=== PATIENT | male | born 1935 | race Caucasian/White ===

== ENCOUNTER 2017-04-16 18:53 | Inpatient (IN) | payer MEDICARE ==
[~2017-04-16] VITALS: Ht 165.1 cm; Wt 75.9 kg
[~2017-04-16 18:53] MED LIST: AEC81 PO; ALLO300T2 PO; AMLO5TAB2 PO; ASPI-1197 PO; CLOP75TA32 PO; ENAL20TA PO; FINA5TAB41 PO; TERA5CAP4 PO
[2017-04-16] MEDS ORDERED: IPRATROPIUM/ALBUTEROL SULFATE 3 ML SOLUTION IH ONE (19:24)
[2017-04-16] MEDS ORDERED: METHYLPREDNISOLONE SOD SUCC 125MG/2ML VIAL ONE (19:46)
[2017-04-16] MEDS ORDERED: SODIUM CHLORIDE 0.9% 1000ML 1,000 ML IV ONE (19:46)
[2017-04-16 20:00] LABS: BASOPHILS % (AUTO) 0.8 % (0.0-5.0); EOSINOPHILS % (AUTO) 5.3 % (0.0-8.0); HEMATOCRIT 38.5 % (42-54); LYMPHOCYTES % (AUTO) 21.8 % (21.0-51.0); MEAN CORPUSCULAR HEMOGLOBIN 32.2 pg (27.0-33.0); MEAN CORPUSCULAR HGB CONC 34.2 g/dL (32.0-36.0); MONOCYTES % (AUTO) 8.9 % (3.0-13.0); NEUTROPHILS % (AUTO) 63.2 % (40.0-77.0); PLATELET COUNT (AUTO) 181 K/uL (130-400); RED CELL DISTRIBUTION WIDTH 13.2 % (11.0-15.5); WHITE BLOOD COUNT (AUTO) 8.4 K/uL (4.8-10.8)
[2017-04-16 20:18] LABS: POTASSIUM 3.5 mmol/L (3.5-5.1)
[2017-04-16 20:23] LABS: ALBUMIN 3.7 g/dL (3.5-5.0); BILIRUBIN,TOTAL 0.4 mg/dL (0.2-1.0); TOTAL PROTEIN, SERUM 7.2 g/dL (6.0-8.3)
[2017-04-16 20:30] LABS: B-TYPE NATRIURETIC PEPTIDE 56 pg/mL (0-100)
[2017-04-16] MEDS ORDERED: BENZONATATE 100 MG CAPSULE PO ONE (20:32)
[2017-04-16] MEDS ORDERED: AZITHROMYCIN 250 MG TABLET PO ONE (20:32)
[2017-04-16 22:12] LABS: APPEARANCE,URINE Clear (CLEAR); BILIRUBIN,URINE Negative (NEGATIVE); COLOR,URINE Yellow (YELLOW); GLUCOSE, URINE (UA) Negative (NEGATIVE); KETONES,URINE Negative (NEGATIVE); LEUKOCYTE ESTERASE ,URINE Trace (NEGATIVE); NITRATE,URINE Negative (NEGATIVE); OCCULT BLOOD,URINE Negative (NEGATIVE); PROTEIN,URINE Negative (NEGATIVE); UROBILINOGEN,URINE 0.2 mg/dL (0.2-1.0)
[2017-04-16] MEDS ORDERED: ALBUTEROL SULFATE 0.083% 2.5 MG/3 ML INH IH ONE (22:22)
[2017-04-16 22:23] LABS: RBC,URINE 0-1 /HPF (0-1)
[2017-04-16 22:24] LABS: BACTERIA,URINE Rare /HPF (None Seen); SQUAMOUS EPITHELIAL CELL,UR Rare /LPF (0-2)
[2017-04-17] MEDS ORDERED: AZITHROMYCIN 500MG+NS 250ML 250 ML IV SCH (00:30)
[2017-04-17] MEDS ORDERED: ONDANSETRON HCL 4 MG/2 ML VIAL IV PRN (00:30)
[2017-04-17] MEDS ORDERED: HYDRALAZINE HCL 20 MG/ML VIAL IV PRN (00:30)
[2017-04-17] MEDS ORDERED: IPRATROPIUM/ALBUTEROL SULFATE 3 ML SOLUTION IH ONE ×3 (01:45→13:41)
[2017-04-17] MEDS: IPRATROPIUM/ALBUTEROL SULFATE 3 ML SOLUTION IH SCH ×6 (02:00→21:43)
[2017-04-17 06:46] LABS: HEMATOCRIT 40.2 % (42-54); MEAN CORPUSCULAR HEMOGLOBIN 32.4 pg (27.0-33.0); MEAN CORPUSCULAR HGB CONC 34.2 g/dL (32.0-36.0); MEAN CORPUSCULAR VOLUME 94.9 fL (79-99); PLATELET COUNT (AUTO) 200 K/uL (130-400); RED BLOOD CELL COUNT(AUTO) 4.23 MIL/uL (4.50-6.20); RED CELL DISTRIBUTION WIDTH 13.6 % (11.0-15.5); WHITE BLOOD COUNT (AUTO) 8.4 K/uL (4.8-10.8)
[2017-04-17 06:52] LABS: CREATININE 1.2 mg/dL (0.5-1.5); POTASSIUM 3.6 mmol/L (3.5-5.1)
[2017-04-17 06:57] LABS: ALBUMIN 3.5 g/dL (3.5-5.0); BILIRUBIN,TOTAL 0.6 mg/dL (0.2-1.0)
[2017-04-17 07:14] LABS: EOSINOPHILS % (MANUAL) 1 % (1-6); LYMPHOCYTES % (MANUAL) 2 % (22-44); MAN.DIFF COMMENT-IMPRESSION MANUAL DIFFERENTIAL; PLATELET MORPHOLOGY COMMENT ADEQUATE; SEGMENTED NEUTROPHILS % 97 % (40-70)
[2017-04-17] MEDS: ENOXAPARIN SODIUM 30 MG/0.3 ML SQ SCH (09:00)
[2017-04-17] MEDS: METHYLPREDNISOLONE SOD SUCC 125MG/2ML VIAL IV SCH ×2 (09:00→21:00)
[2017-04-17] MEDS ORDERED: ENOXAPARIN SODIUM 30 MG/0.3 ML SQ ONE (09:11)
[2017-04-17] MEDS ORDERED: METHYLPREDNISOLONE SOD SUCC 40MG/ML 1ML ONE ×2 (09:11→21:00)
[2017-04-17] MEDS ORDERED: AZITHROMYCIN 500MG+NS 250ML 250 ML IV ONE (12:24)
[2017-04-17 21:20] VITALS: BP 149/69
[2017-04-17] MEDS: BENZONATATE 100 MG CAPSULE PO SCH (22:37)
[2017-04-17 23:20] VITALS: BP 120/63
[2017-04-18] MEDS: IPRATROPIUM/ALBUTEROL SULFATE 3 ML SOLUTION IH SCH ×6 (02:36→22:35)
[2017-04-18 03:30] VITALS: BP 136/66
[2017-04-18 05:05] LABS: HEMATOCRIT 36.4 % (42-54); LYMPHOCYTES % (AUTO) 6.6 % (21.0-51.0); MEAN CORPUSCULAR HEMOGLOBIN 32.9 pg (27.0-33.0); MEAN CORPUSCULAR HGB CONC 34.8 g/dL (32.0-36.0); MEAN CORPUSCULAR VOLUME 94.7 fL (79-99); MONOCYTES % (AUTO) 2.6 % (3.0-13.0); NEUTROPHILS % (AUTO) 90.8 % (40.0-77.0); PLATELET COUNT (AUTO) 192 K/uL (130-400); RED BLOOD CELL COUNT(AUTO) 3.85 MIL/uL (4.50-6.20); RED CELL DISTRIBUTION WIDTH 13.6 % (11.0-15.5); WHITE BLOOD COUNT (AUTO) 16.4 K/uL (4.8-10.8)
[2017-04-18 05:17] LABS: CREATININE 1.3 mg/dL (0.5-1.5); POTASSIUM 3.7 mmol/L (3.5-5.1)
[2017-04-18 08:00] VITALS: BP 150/79
[2017-04-18] MEDS: ENOXAPARIN SODIUM 30 MG/0.3 ML SQ SCH (09:59)
[2017-04-18] MEDS: ACETAMINOPHEN 325 MG TAB PO PRN (10:03)
[2017-04-18] MEDS: METHYLPREDNISOLONE SOD SUCC 125MG/2ML VIAL IV SCH ×2 (10:03→15:02)
[2017-04-18] MEDS: BENZONATATE 100 MG CAPSULE PO SCH ×3 (10:04→20:04)
[2017-04-18 12:02] VITALS: BP 133/76
[2017-04-18] MEDS: AZITHROMYCIN 500MG+NS 250ML 250 ML IV SCH (13:22)
[2017-04-18 16:41] VITALS: BP 142/85
[2017-04-18 20:03] VITALS: BP 151/83
[2017-04-18] MEDS: GUAIFENESIN 600 MG TABLET.ER PO SCH (20:04)
[2017-04-18 23:10] VITALS: BP 148/80
[2017-04-19] MEDS: METHYLPREDNISOLONE SOD SUCC 125MG/2ML VIAL IV SCH ×4 (00:52→19:48)
[2017-04-19] MEDS: IPRATROPIUM/ALBUTEROL SULFATE 3 ML SOLUTION IH SCH ×6 (02:58→22:25)
[2017-04-19 03:00] VITALS: BP 159/84
[2017-04-19 08:00] VITALS: BP 152/82
[2017-04-19] MEDS: ENOXAPARIN SODIUM 30 MG/0.3 ML SQ SCH (09:00)
[2017-04-19] MEDS: GUAIFENESIN 600 MG TABLET.ER PO SCH ×2 (09:41→19:50)
[2017-04-19] MEDS: BENZONATATE 100 MG CAPSULE PO SCH ×3 (09:41→19:50)
[2017-04-19] MEDS: ACETAMINOPHEN 325 MG TAB PO PRN (10:26)
[2017-04-19 11:00] VITALS: BP 155/76
[2017-04-19] MEDS: AZITHROMYCIN 500MG+NS 250ML 250 ML IV SCH (13:36)
[2017-04-19 16:00] VITALS: BP 148/98
[2017-04-19 19:35] VITALS: BP 164/78
[2017-04-19 23:11] VITALS: BP 149/82
[2017-04-20] MEDS: IPRATROPIUM/ALBUTEROL SULFATE 3 ML SOLUTION IH SCH ×4 (02:50→13:36)
[2017-04-20 03:33] VITALS: BP 155/85
[2017-04-20 08:00] VITALS: BP 167/84
[2017-04-20] MEDS: METHYLPREDNISOLONE SOD SUCC 125MG/2ML VIAL IV SCH (08:59)
[2017-04-20] MEDS: GUAIFENESIN 600 MG TABLET.ER PO SCH (08:59)
[2017-04-20] MEDS: BENZONATATE 100 MG CAPSULE PO SCH ×2 (08:59→15:03)
[2017-04-20] MEDS: ENOXAPARIN SODIUM 30 MG/0.3 ML SQ SCH (09:00)
[2017-04-20 11:00] VITALS: BP 161/81
[2017-04-20] MEDS: AZITHROMYCIN 500MG+NS 250ML 250 ML IV SCH (12:58)
[2017-04-20] MEDS ORDERED: AZIT500T4 PO (13:28)
[2017-04-20] MEDS ORDERED: PRED20TA3 PO (13:28)
[2017-04-20] MEDS ORDERED: TIOT18CA3 IH (13:28)
== END 2017-04-20 17:05 | disposition home or self-care (01) | DRG 202 ==
LOC: EDH 18:53 → OBSVTOIN 22:22 → EDHIP 22:22 → 3BH 04-17 20:32
PROVIDERS: ADMIT Family Medicine; ATTEND Family Medicine
DX: J98.01 Acute bronchospasm (principal); J44.1 Chronic obstructive pulmonary disease with (acute) exacerbation; E66.9 Obesity, unspecified; I10 Essential (primary) hypertension; Z87.891 Personal history of nicotine dependence; Z68.27 Body mass index [BMI] 27.0-27.9, adult; Z88.0 Allergy status to penicillin; Z88.8 Allergy status to other drugs, medicaments and biological substances
CPT/HCPCS: 36415; 71045; 71046; 80048; 80053; 81001; 83880; 84484; 85025; 87088; 87804; 94640; 94664; J0456; J1650; J2920; J2930; J7030

== ENCOUNTER 2021-06-09 14:18 | Emergency (ER) | payer MEDICARE ==
[~2021-06-09] VITALS: Ht 165.1 cm; Wt 68.0 kg
[~2021-06-09 14:18] MED LIST changes: +ALBU8.5H8 IH; +AMLO-257 PO; -AMLO5TAB2 PO; +DOXY100T2 PO; -ENAL20TA PO; +ENAL20TA18 PO; +TIOT18CA3 IH
[2021-06-09 14:19] VITALS: BP 154/61
[2021-06-09] MEDS ORDERED: ASPIRIN 81MG CHEW TAB PO ONE (14:30)
[2021-06-09 14:46] LABS: HEMATOCRIT 39.2 % (42-54); MEAN CORPUSCULAR HEMOGLOBIN 32.5 pg (27.0-33.0); MEAN CORPUSCULAR HGB CONC 33.9 g/dL (32.0-36.0); MEAN CORPUSCULAR VOLUME 95.8 fL (79-99); RED BLOOD CELL COUNT(AUTO) 4.09 MIL/uL (4.50-6.20); RED CELL DISTRIBUTION WIDTH 13.3 % (11.0-15.5); WHITE BLOOD COUNT (AUTO) 6.7 K/uL (4.8-10.8)
[2021-06-09 14:47] LABS: BASOPHILS % (AUTO) 0.9 % (0.0-5.0); EOSINOPHILS % (AUTO) 1.1 % (0.0-8.0); LYMPHOCYTES % (AUTO) 29.6 % (21.0-51.0); MONOCYTES % (AUTO) 10.7 % (3.0-13.0); NEUTROPHILS % (AUTO) 57.5 % (40.0-77.0); PLATELET COUNT (AUTO) 179 K/uL (130-400)
[2021-06-09 15:01] LABS: CREATININE 0.9 mg/dL (0.5-1.5); INR 1.05 (0.85-1.15); POTASSIUM 3.7 mmol/L (3.5-5.1); PROTHROMBIN TIME 11.4 SEC (9.6-11.6)
[2021-06-09 15:02] LABS: PARTIAL THROMBOPLASTIN TIME 27.1 SEC (26.3-35.5)
[2021-06-09 15:08] LABS: ALBUMIN 3.6 g/dL (3.5-5.0); BILIRUBIN,TOTAL 0.5 mg/dL (0.2-1.0); MAGNESIUM 2.5 mg/dL (1.80-2.40); TOTAL PROTEIN, SERUM 6.7 g/dL (6.0-8.3)
[2021-06-09 15:15] LABS: B-TYPE NATRIURETIC PEPTIDE 149 pg/mL (0-100)
[2021-06-09] MEDS ORDERED: IOHEXOL-350 50ML VIAL IV ONE (17:12)
[2021-06-09] MEDS ORDERED: DICYCLOMINE HCL 10 MG/5 ML ML PO ONE (18:00)
[2021-06-09] MEDS ORDERED: LIDOCAINE HCL 2% VISCOUS 15 ML UDCUP PO ONE (18:00)
[2021-06-09] MEDS ORDERED: PANTOPRAZOLE 40 MG/VIAL IVP ONE (18:00)
[2021-06-09] MEDS ORDERED: MAG/ALUM/SIMETH 30 ML UDCUP PO ONE (18:00)
[2021-06-09] MEDS ORDERED: PANT20TA PO (18:12)
== END 2021-06-09 18:46 | disposition home or self-care (01) ==
LOC: EDH 14:18
DX: K21.9 Gastro-esophageal reflux disease without esophagitis (principal); Z79.82 Long term (current) use of aspirin; Z79.899 Other long term (current) drug therapy; Z88.0 Allergy status to penicillin; Z88.1 Allergy status to other antibiotic agents; Z88.2 Allergy status to sulfonamides; Z88.8 Allergy status to other drugs, medicaments and biological substances
CPT/HCPCS: 36415; 71045; 71275; 80053; 82550; 83735; 83874; 83880; 84484 ×2; 85025; 85378; 85610; 85730; 93005; 96374; 99285; C9113; Q9967